=== PATIENT | male | born 1995 | race African-American/Black ===

== ENCOUNTER 2021-10-27 11:47 | Day surgery (SDC) | payer OTHER ==
[~2021-10-27] VITALS: Ht 193 cm; Wt 84.4 kg
--- NOTE | ~2021-10-27 | OR ---
[facility] [address] [address] [place], [place] [address] Draft DATE OF OPERATION: 10/27/2021 SURGEON: Raj Tyler MD PREOPERATIVE DIAGNOSIS: Ingested foreign bodies to stomach (razor blades). POSTOPERATIVE DIAGNOSIS: Razor blades in junction between bulbar and 2nd portion of duodenum (two razor blades in total). PROCEDURE: Upper endoscopy with extraction of razor blades x2 (two independent endeavors). ANESTHESIA: General endotracheal, Gera Styles CRNA. INDICATION: This 26-year-old man is a prisoner at [facility] and was seen to have ingested two bare razor blades yesterday. He was taken to the emergency room with concerns of foreign body ingestion, though he initially denied it. Plain abdominal and chest x-ray showed a foreign body consistent with razor blades in the midportion just to the left of the spine suggestive of stomach congestion. The patient was prepared for endoscopic retrieval and a COVID test obtained (negative) and repeat KUB was undertaken showing the foreign body to have passed distally to the right of the spine. It is unclear if this was still in the antrum or perhaps into the duodenum. I have presented to him a recommendation of upper endoscopy and removal of the razor blade foreign body unless it had already passed well beyond the stomach into the intestine in which case expectant management would be recommended. The risk of bleeding, infection, perforation, and so forth were reviewed in detail and he understands and wished to proceed. Of special note, the patient ultimately admitted that he had swallowed two razor blades, though all imaging studies showed only one. FINDINGS: Indeed there were two razor blades. Both were juxtaposed to each other (initially) and PATIENT NAME: THERESA MAZARIEGOS OPERATIVE REPORT DATE OF : [birth year] REPORT #: [id number] PHYSICIAN: RAJ TYLER MD PCP: HARRIET SPENCER REPORT IS CONFIDENTIAL AND NOT TO BE RELEASED WITHOUT AUTHORIZATION [facility] [address] [place], [place] [address] Draft they appeared to be somewhat wedged in the region of the duodenum and 2nd portion of the duodenum. There was no sign of actual large-scale laceration or anything of that sort. Manipulation and extraction of the razor blades was somewhat challenging on the basis of their configuration, but it was accomplished safely. Each was extracted separately. This combination of a rubber gripped forcep as well as snare was used to affect the retrieval. DESCRIPTION OF PROCEDURE: The patient was brought to the endoscopy suite and given a general endotracheal anesthetic. A bite block was placed. An Olympus video upper endoscope was passed in the hypopharynx observing good intubation of the trachea with endotracheal tube. The scope was easily passed in the esophagus, which appeared to be uninjured. The scope was passed in the stomach which was insufflated with air. Rugal folds were normal. There was no evidence of a razor blade, foreign body within the stomach. Retroflexed view was normal as well. The scope was carefully manipulated into the pylorus and promptly into the 2nd and 3rd portions of the duodenum, which did not identify the razor blade foreign body initially. Careful withdrawal of scope showed the foreign body in fact to be just behind the 1st fold from the duodenal bulb. It appeared to be relatively immobile in that area. Close inspection showed there to be in fact two razor blades juxtaposed to each other just as the patient had described. A biopsy forceps with rubber roughing mill operator was manipulated into the area in hopes of withdrawing the razor blade at the tip. This did rearrange the position, but it was not fortuitous to actually grasp the razor blade except in the midportion which would be rather hazardous under the circumstances. A snare was obtained but was similarly ineffective. The scope was removed and the patient was then placed in the lateral decubitus position left side down. Reintroduction of the scope was undertaken and passage through the pylorus allow for somewhat improved position of the two foreign bodies. The snare was applied to the end of the razor blades and it was carefully manipulated in continuity into the stomach itself. Adjustment of the snare on the razor blades was undertaken and careful withdrawal was undertaken through the GE junction without problem. In the more proximal esophagus disengagement of the two foreign bodies from the snare was noted. It appeared to be just distal to the cricopharyngeus. The snare was removed and forceps once again grasped. The tip of the razor blade of one razor blade was grasped and carefully manipulated out through the hypopharynx and although grasped and lost several times, ultimately it was extracted safely and offloaded. The scope was reintroduced and passed in the hypopharynx into the esophagus. The 2nd razor blade foreign body was similarly extracted dominantly with the forceps and with PATIENT NAME: THERESA MAZARIEGOS OPERATIVE REPORT DATE OF : [birth year] REPORT #: [id number] PHYSICIAN: RAJ TYLER MD PCP: HARRIET SPENCER REPORT IS CONFIDENTIAL AND NOT TO BE RELEASED WITHOUT AUTHORIZATION [facility] [address] [place] [id number] Draft less issue of falling off upon withdrawal through the hypopharynx. Both foreign bodies were affirmed to be razor blades of the exact same size and type. The scope was reintroduced and examination throughout the upper gastrointestinal tract undertaken showing no sign of serious laceration or other problem. There were few areas of minor abrasions which would be expected. The scope was removed and the patient was taken to the recovery room in good condition. CONCLUDING DIAGNOSIS: Razor blades x2, both extracted from the area of bulbar duodenum. PLAN: Avoidance of opportunity for further ingestion of foreign bodies will certainly be recommended as always. He will be able to discharge to the long term tonight most likely. MD CHRIS Huber/SELINA /[id number] cc: LEENA Joaquin MD Copies: HARRIET SPENCER WILLIAM S MD ~ PATIENT NAME: THERESA MAZARIEGOS OPERATIVE REPORT DATE OF : [birth year] REPORT #: [id number] PHYSICIAN: RAJ TYLER MD PCP: SPENCER,HARRIET R CHAR FILTER TANK TENDER HEAD REPORT IS CONFIDENTIAL AND NOT TO BE RELEASED WITHOUT AUTHORIZATION
--- NOTE | ~2021-10-27 | HP ---
[facility] [address] [place], [place] [address] Draft ADMISSION DATE: 10/27/2021 REASON FOR ADMISSION: Ingested razor blade. HISTORY OF PRESENT ILLNESS: This 26-year-old dark-skinned man is a prisoner at [facility]. He presented to the emergency room today and has been evaluated by Dr. Haley, having described ingestion of razor blades. He said he swallowed two such razor blades. The patient apparently has the plastic protective cover off the razor blades and ingested them without incident. His initial imaging studies showed only one foreign body. Both chest x-ray and abdominal x-ray were performed. The foreign body was consistent with a razor blade in fact. A photo of the typical razor was provided by personnel at the halfway and thought to be within the stomach itself per radiologist interpretation. My initial view of the x-ray showed it more likely to be lower than the stomach, though it is uncertain of course. The patient remains free of any symptoms. LABORATORY DATA: Lab studies were obtained, which show a normal white count of 5.8 with A hematocrit of 46.3, and platelets of 170,000, Chem profile, which was normal and a COVID serology which was negative. The patient is not thought to have prior history of such incidence in the past. PAST SURGICAL HISTORY: Includes back operation, left arm and right foot operation. MEDICATIONS: He takes no medications on a routine basis. ALLERGIES: He has no known drug allergies. REVIEW OF SYSTEMS: He denies any shortness of breath or chest pain. He has had no hematemesis or blood per rectum. He does not feel particularly stressed or anxious. PHYSICAL EXAMINATION: GENERAL: Relatively thin dark-skinned man, who looks to be in no distress. VITAL SIGNS: Pulse is 52, blood pressure 139/66, respirations 16. NECK: Shows no thyromegaly or cervical adenopathy. PATIENT NAME: THERESA MAZARIEGOS HISTORY AND PHYSICAL DATE OF : [birth year] REPORT #: [id number] PHYSICIAN: RAJ TYLER MD PCP: HARRIET SPENCER REPORT IS CONFIDENTIAL AND NOT TO BE RELEASED WITHOUT AUTHORIZATION [facility] [address] [place], [place] [address] Draft Trachea is midline. CHEST: He has no respiratory distress. Respiratory excursion is normal. HEART: Pulse is regular. ABDOMEN: Nondistended. EXTREMITIES: Show no clubbing, cyanosis, or edema. Lab studies were obtained as previously described. Electrolytes are normal. ASSESSMENT: The patient has ingested at least one razor blade, which is visualized on plain x-ray of the abdomen. Initial abdominal x-ray showed the razor blade to likely be in the mid stomach, but with time, it has changed position to be to the right of the spinal column. Review of recent literature describes appropriateness of extraction of razor blades while still in the stomach but if pass the stomach expectant management is generally safe. I discussed all this with the patient as well as Dr. Haley prior to my presentation to the ER. The risk of bleeding, infection, failure to extract the and so forth were all reviewed in detail and he is willing to proceed with upper endoscopy for that purpose. MD CHRIS Huber/GIBRANL /[id number] cc: YVES Noel Copies: ~ PATIENT NAME: THERESA MAZARIEGOS HISTORY AND PHYSICAL DATE OF : [birth year] REPORT #: [id number] PHYSICIAN: RAJ TYLER MD PCP: HARRIET SPENCER REPORT IS CONFIDENTIAL AND NOT TO BE RELEASED WITHOUT AUTHORIZATION
--- NOTE | 2021-10-27 18:02 | NUR ---
10/27/211801 IMAN AVINA 1746-PATIENT ARRIVES TO PACU ON 10L VIA MASK. PATIENT IS REACTIVE TO STIMUL LAYING ON HIS LEFT SIDE IN BED WITH HIS EYES CLOSE. 174-O2 TITRATED TO 6L VIA MASK. O2 SATS AT 100%. 174-O2 TITRATED OFF. O2 SATS AT 100% ON RA. PATIENT LAYING ON LEFT SIDE AND HOB ELEVATED. PATIENT IS TEARFUL AND DOSEN'T RESPOND TO QUESTIONS WHEN ASKED. 175-PATIENT OPENS EYES. DENEIS PAIN AND NAUSEA. STILL TEARFUL. 1800-DR. TYLER AT BEDSIDE TALKING TO PATIENT. PATIENT REPOSITIONED HIMSELF TO BACK. RESP EVEN.
--- NOTE | 2021-10-27 18:33 | NUR ---
PT. ARRIVED VIA STRETCHER IN 5 POINT RESTRAINTS WITH 2 C.O. REPORT RECEIVED FROM RN. PT. DENIES PAIN AND REFUSES WATER OR FOOD AT THIS TIME. BOWEL TONES HYPOACTIVE. LUNGS CLEAR AND HEART SOUNDS REGULAR. BREATHING IS EVEN UNLABORED. STRONG PULSES PRESENT IN ALL EXTREMITIES, CMS INTACT. DISCUSSED POC AND SAFETY. LEFT RESTING IN BED
--- NOTE | 2021-10-27 19:29 | NUR ---
Sitting up in stretcher, room air, denies c/o pain. wearing 4X restraints per [facility] policy, 2 [facility] personnel in room. Pt ready to be dc'd
--- NOTE | 2021-10-27 19:43 | NUR ---
193- IV DC'D. LAC. TIP INTACT. PROCEDURE EXPLAINED OT PT. 1942- DENIES C/O PAIN, ON ROOM AIR. CLM, APPROPRIATE, FOLLOWS INSATRUCTIONS PT DC VIA W/C BACK TO [facility], ACOMPANIED BY 2 [facility] OFFICERS.
== END 2021-10-27 19:43 | disposition home or self-care (01) ==
LOC: ED 11:47 → DS 17:22 → MS 17:22 → DS 19:43
PROVIDERS: ATTEND Surgery
PROC: 0DC98ZZ Extirpation of Matter from Duodenum, Via Natural or Artificial Opening Endoscopic (ICD-10-PCS; principal; 2021-10-27 16:37)
DX: T18.3XXA Foreign body in small intestine, initial encounter (principal); X58.XXXA Exposure to other specified factors, initial encounter; Z20.822 Contact with and (suspected) exposure to COVID-19
CPT/HCPCS: 36415; 71045; 74018; 80053; 85025; C9803; J1100; J2001; J2405; J2704; J3010; J7121; U0003